=== PATIENT | male | born 2000 | race American Indian/Alaskan Native ===

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

== ENCOUNTER 2018-01-29 22:15 | Emergency (ER) | payer MEDICAID ==
[2018-01-29 22:52] VITALS: BP 130/74
[2018-01-29] MEDS ORDERED: MOTRIN PO ONE (22:52)
== END 2018-01-30 01:45 | disposition left against medical advice (07) ==
LOC: ED 22:15
DX: H92.02 Otalgia, left ear (principal); Z53.21 Procedure and treatment not carried out due to patient leaving prior to being seen by health care provider